=== PATIENT | female | born 1955 | race Caucasian/White ===

== ENCOUNTER 2017-07-29 03:13 | Emergency (ER) | payer BC, OTHER ==
[~2017-07-29] VITALS: Ht 160 cm; Wt 100.0 kg
[~2017-07-29 03:13] MED LIST: ACET1TAB40 PO; ALBU8.5H3 INH; ASPI-781 PO; ASPI81TA3 PO; MELO7.5O PO; RANI300T3 PO; SIMV20TA2 PO
[2017-07-29 03:17] VITALS: Ht 160 cm; Wt 100.0 kg
[2017-07-29] MEDS ORDERED: ONDANSETRON (ODT) 4 MG TAB ODT STA (03:38)
[2017-07-29] MEDS ORDERED: morphine 4 MG/ML VIAL IM STA (03:38)
--- NOTE | 2017-07-29 03:45 | ERD ---
ER Documentation Chief Complaint Chief Complaint bib self, cc: right arm pain s/p fall HPI 61-year-old female presented today 12 hours status post mechanical fall with injury to the right forearm. Has taken [place] without relief. Denies numbness, tingling, loss of range of motion. States that she also hit the left knee. Denies pain left knee. Forearm pain is currently 9 out of 10. Patient has no other complaints and describes no other associated manifestations. Nursing notes have been reviewed and are consistent with history given. ROS All systems reviewed and are negative except as per history of present illness. Medications Home Meds Active Scripts Aspirin* (Aspirin* Chew) 81 Mg Tab.chew, 81 MG PO DAILY for 30 Days, TAB.CHEW Prov:AMADO GARCIA 06/06/15 Aspirin* (Ecotrin*) 325 Mg Tabec, 325 MG PO DAILY for 90 Days Prov:AMADO GARCIA 06/06/15 Reported Medications Meloxicam* (Meloxicam*) 7.5 Mg/5 Ml Oral.susp, 15 MG PO DAILY, ML 06/05/15 Ranitidine Hcl* (Zantac*) 300 Mg Tablet, 300 MG PO HS, TAB 06/05/15 Simvastatin (Simvastatin) 20 Mg Tablet, 20 MG PO HS, TAB 06/05/15 Acetaminophen-Codeine* (Acetaminophen-Cod #3*) 300-30 Mg Tab, 1 TAB PO QID Y for PAIN, TAB 06/05/15 Albuterol Sulfate* (Proair HFA*) 8.5 Gm Hfa.aer.ad, 2 PUFF INH Q6H Y for WHEEZING AND SOB, INH 06/05/15 Allergies Allergies: Coded Allergies: No Known Allergy (Unverified , 06/05/15) PMhx/Soc Medical and Surgical Hx: pt denies Medical Hx, pt denies Surgical Hx History of Surgery: Yes (HYSTERECTOMY, RT FOOT SURGERY) Anesthesia Reaction: No Hx Neurological Disorder: No Hx Respiratory Disorders: Yes (ASTHMA) Hx Cardiac Disorders: Yes (HIGH CHOLESTEROL) Hx Psychiatric Problems: No Hx Miscellaneous Medical Probl: No Hx Alcohol Use: No Hx Substance Use: No Hx Tobacco Use: No Smoking Status: Never smoker Physical Exam Vitals Vital Signs Date Time Temp Pulse Resp B/P Pulse Ox O2 Delivery O2 Flow Rate FiO2 07/29/17 03:17 98.2 81 18 151/61 100 Physical Exam Const: Overweight 61-year-old female in no acute distress Head: Atraumatic Neck: Full range of motion..~ No meningismus. Resp: Clear to auscultation bilaterally Cardio: Regular rate and rhythm, no murmurs Abd: Soft, non tender, non distended. Normal bowel sounds Back: No midline or flank tenderness Ext: No cyanosis, or edema. Abrasion on left knee. No tenderness palpation. Right forearm has a bruise over the dorsal aspect of the upper third of the forearm with marked tenderness to palpation. Full range of motion. Neurovascularly intact with cap refill less than 2 seconds and radial pulses 2+ bilaterally. No pain with palpation of the elbow or shoulder. Full range of motion of the elbow and shoulder. Full rotation motion. Knee exam unremarkable. Neur: Awake and alert Psych: Normal Mood and Affect Results 24 hrs Current Medications Medications (Trade) Dose Ordered Sig/Candida Route PRN Reason Start Time Stop Time Status Last Admin Dose Admin Morphine Sulfate (morphine) 4 mg ONCE STAT IM 07/29/17 03:38 07/29/17 03:41 DC 07/29/17 03:53 Ondansetron HCl (Zofran Odt) 4 mg ONCE STAT ODT 07/29/17 03:38 07/29/17 03:41 DC 07/29/17 03:53 Lorazepam (Ativan) 0.5 mg ONCE ONCE PO 07/29/17 05:00 07/29/17 05:00 DC Procedures/MDM 61-year-old female presenting with a chief complaints of right forearm pain status post mechanical fall. Tenderness palpation over the posterior upper third of the forearm. [place] without relief. Morphine and Zofran was given in the ED with relief of symptoms. X-ray obtained and revealed the following: Forearm: 1. No acute fracture or dislocation. 2. Approximately 4 sub centimeter corticated ossific bodies lateral to the lateral epicondyle. Diagnostic considerations include the sequela of remote trauma and/or calcific tendonitis. 3. Degenerative changes of the lateral epicondyle. Wrist 1. No acute fracture dislocation. 2. Mild to moderate degenerative changes of the trapezoid first metacarpal phalangeal joint. 3. Soft tissue swelling overlying the dorsomedial wrist and hand. At this time I have no suspicion for neurovascular compromise or acute fracture or dislocation. Most likely diagnosis is arm contusion. Patient has been directed to continue conservative management with [id number] ibuprofen and [place] as prescribed by PCP. I have spoke with the patient regarding their condition and future management. They have verbally responded that they understand their status and treatment plan. The patients vitals are stable, and their current condition is appropriate for discharge. The patient will be given discharge instructions with return precautions. Departure Diagnosis: Primary Impression: Injury of upper extremity Encounter type: initial encounter Laterality: right Qualified Code: S49.91XA - Injury of right upper extremity, initial encounter Additional Instructions: Follow up with your PCP within the next 1-3 days for a more thorough evaluation and a possible referral to a specialist. Return the the emergency department immediately if symptoms worsen or change. If you have any questions regarding medications, ask your pharmacist or us before you leave. If any adverse reactions occur while taking your medications, discontinue the treatment and return to the emergency department immediately. Take your medications as directed, and complete the entire course of treatment. MITA SAWYER PA-C Jul 29, 2017 03:45
--- NOTE | 2017-07-29 04:27 | RADRPT ---
PROCEDURE: XR Forearm. CLINICAL INDICATION: Trauma. TECHNIQUE: AP and lateral views of the right forearm were obtained. COMPARISON: None. FINDINGS: No acute fracture or dislocation. Degenerative changes involve the lateral epicondyle. Approximately 4 sub centimeter corticated ossific bodies are present adjacent to the lateral epicondyle with cons iderations including the sequela of remote trauma and/or calcific tendonitis. The soft tissues are u nremarkable. IMPRESSION: 1. No acute fracture or dislocation. 2. Approximately 4 sub centimeter corticated ossific bodies lateral to the lateral epicondyle. Diag nostic considerations include the sequela of remote trauma and/or calcific tendonitis. 3. Degenerative changes of the lateral epicondyle. RPTAT: [facility] Physician Cinthya Date Time Electronically viewed and signed by Physician Cinthya on 07/29/2017 04:26 RR/
--- NOTE | 2017-07-29 04:29 | RADRPT ---
PROCEDURE: XR wrist. CLINICAL INDICATION: Trauma TECHNIQUE: AP, lateral and oblique views of the right wrist were performed. COMPARISON: Right forearm of the same date. FINDINGS: The bones of the hand appear intact, with no evidence of acute fracture, dislocation, or subluxation . There are mild to moderate degenerative changes involving the trapezoid first metacarpal phalangeal joint. There is joint space narrowing and subchondral sclerosis. Bone mineralization is normal. Mild soft tissue swelling overlies the dorsomedial wrist and hand . IMPRESSION: 1. No acute fracture dislocation. 2. Mild to moderate degenerative changes of the trapezoid first metacarpal phalangeal joint. 3. Soft tissue swelling overlying the dorsomedial wrist and hand. RPTAT: [facility] Physician Cinthya Date Time Electronically viewed and signed by Physician Cinthya on 07/29/2017 04:29 RR/
[2017-07-29] MEDS ORDERED: LORAZEPAM 0.5 MG TAB PO ONE (05:00)
== END 2017-07-29 05:39 | disposition home or self-care (01) ==
LOC: FTE 03:13
DX: S49.91XA Unspecified injury of right shoulder and upper arm, initial encounter (principal); J45.909 Unspecified asthma, uncomplicated; W18.39XA Other fall on same level, initial encounter; Y92.9 Unspecified place or not applicable; Z79.82 Long term (current) use of aspirin
CPT/HCPCS: 73090; 73110; 96372; 99284; J2270